=== PATIENT | female | born 1980 | race African-American/Black ===

== ENCOUNTER 2017-10-31 08:07 | Emergency (ER) | payer OTHER ==
[2017-10-31] MEDS ORDERED: METHOCARBAMOL 1,000 MG in NA CHLORIDE 0.9% 100 ML IV ONE (09:00)
[2017-10-31] MEDS ORDERED: KETOROLAC 30 MG/ML INJ ONE (09:08)
[2017-10-31] MEDS ORDERED: ACETAMINOPHEN 500 MG TAB ONE (10:37)
--- NOTE | 2017-10-31 10:48 | EDPHYS ---
Physician Documentation [facility] Name: Talat Mendieta Age: 37 yrs Sex: Female : 1980 Arrival Date: 10/31/2017 Time: 08:09 Bed 8 Private MD: ED Physician Garett Donovan HPI: 10/31 08:33 This 37 yrs old Black Female presents to ER via EMS with complaints of Back Pain. kdr 08:33 The patient presents with pain that is acute, and decreased range of motion, and kdr tenderness. The symptoms are located in the right subscapular area and right mid back. Onset: The symptoms/episode began/occurred suddenly, just prior to arrival. The pain does not radiate. Associated signs and symptoms: The patient has no apparent associated signs or symptoms. The problem was sustained The patient was reaching up into her closet when she had acute onset of pain in her right subscapular (Serratus Anterior \T\ Latissimus Dorsi) area . Modifying factors: The patient symptoms are alleviated by remaining still, the patient symptoms are aggravated by movement, Moving her right arm and chest wall causes discomfort. Severity of symptoms: At their worst the symptoms were severe, incapacitating, in the emergency department the symptoms have improved, mildly. The patient has not experienced similar symptoms in the past. The patient has not recently seen a physician. Historical: - Allergies: 08:14 Codeine; hb 08:14 PENICILLINS; hb 08:14 Sulfa (Sulfonamide Antibiotics); hb - Home Meds: 08:14 None [Active]; hb - PMHx: 08:14 Asthma; hb - PSHx: 08:14 Tubal ligation; hb - Immunization history:: Adult Immunizations up to date. - Social history:: Smoking status: Patient/guardian denies using tobacco. ROS: 08:33 Constitutional: Negative for fever, chills, and weight loss, Eyes: Negative for injury, kdr pain, redness, and discharge, Neck: Negative for injury, pain, and swelling, Cardiovascular: Negative for chest pain, palpitations, and edema, Respiratory: Negative for shortness of breath, cough, wheezing, and pleuritic chest pain, Abdomen/GI: Negative for abdominal pain, nausea, vomiting, diarrhea, and constipation, : Negative for injury, bleeding, discharge, and swelling, MS/Extremity: Negative for injury and deformity, Skin: Negative for injury, rash, and discoloration, Neuro: Negative for headache, weakness, numbness, tingling, and seizure activity. Psych: Negative for depression, anxiety, suicide ideation, homicidal ideation, and hallucinations, Allergy/Immunology: Negative for hives, rash, and allergies, Endocrine: Negative for neck swelling, polydipsia, polyuria, polyphagia, and marked weight changes, Hematologic/Lymphatic: Negative for swollen nodes, abnormal bleeding, and unusual bruising. 08:33 Back: Positive for decreased range of motion, pain at rest, pain with movement, of the right subscapular area and right mid back. Exam: 08:33 Constitutional: This is a well developed, well nourished patient who is awake, alert, kdr and in no acute distress. Head/Face: Normocephalic, atraumatic. Eyes: Pupils equal round and reactive to light, extra-ocular motions intact. Lids and lashes normal. Conjunctiva and sclera are non-icteric and not injected. Cornea within normal limits. Periorbital areas with no swelling, redness, or edema. Neck: Trachea midline, no thyromegaly or masses palpated, and no cervical lymphadenopathy. Supple, full range of motion without nuchal rigidity, or vertebral point tenderness. No Meningismus. Chest/axilla: Normal chest wall appearance and motion. Nontender with no deformity. No lesions are appreciated. Cardiovascular: Regular rate and rhythm with a normal S1 and S2. No gallops, murmurs, or rubs. Normal PMI, no JVD. No pulse deficits. Respiratory: Lungs have equal breath sounds bilaterally, clear to auscultation and percussion. No rales, rhonchi or wheezes noted. No increased work of breathing, no retractions or nasal flaring. Abdomen/GI: Soft, non-tender, with normal bowel sounds. No distension or tympany. No guarding or rebound. No evidence of tenderness throughout. Skin: Warm, dry with normal turgor. Normal color with no rashes, no lesions, and no evidence of cellulitis. MS/ Extremity: Pulses equal, no cyanosis. Neurovascular intact. Full, normal range of motion. Neuro: Awake and alert, GCS 15, oriented to person, place, time, and situation. Cranial nerves II-XII grossly intact. Motor strength 5/5 in all extremities. Sensory grossly intact. Cerebellar exam normal. Normal gait. Psych: Awake, alert, with orientation to person, place and time. Behavior, mood, and affect are within normal limits. 08:33 Back: pain, that is mild, that is moderate, of the right subscapular area and right mid back. Vital Signs: 08:09 BP 138 / 94; Pulse 82; Resp 16; Temp 97.9; Pulse Ox 98% on R/A; Pain 9/10; hb 10:02 BP 114 / 91; Pulse 81; Resp 16; Pulse Ox 100% on R/A; la1 11:09 BP 117 / 76; Pulse 81; Resp 16; Pulse Ox 100% on R/A; la1 MDM: 08:15 Patient medically screened. kdr 08:33 Data reviewed: vital signs, nurses notes. Counseling: I had a detailed discussion with kdr the patient and/or guardian regarding: the historical points, exam findings, and any diagnostic results supporting the discharge/admit diagnosis, the need for outpatient follow up. Administered Medications: 08:51 Drug: TORadol 30 mg Route: IVP; Site: right antecubital; hb 09:19 Follow up: Response: No adverse reaction; Pain is decreased hb 09:19 Drug: Robaxin 1 grams Route: IVPB; Infused Over: 1 hrs; Site: right antecubital; hb 11:04 Follow up: IV Status: Completed infusion la1 10:20 Drug: Tylenol 1000 mg Route: PO; la1 11:03 Follow up: Response: No adverse reaction; Pain is decreased la1 Disposition: 10/31/17 10:47 Discharged to Home. Impression: Muscle spasm of back, Low back pain. - Condition is Stable. - Discharge Instructions: Musculoskeletal Pain, Back Pain, Adult, [id number]. - Prescriptions for Ibuprofen 800 mg Oral Tablet - take 1 tablet by ORAL route every 8 hours As needed take with food; 15 tablet. Robaxin 500 mg Oral Tablet - take 2 tablet by ORAL route every 6 hours As needed; 40 tablet. Tramadol 50 mg Oral Tablet - take 1 tablet by ORAL route every 8 hours As needed as needed; 15 tablet. Medrol (Irving) 4 mg Oral Tablets, Dose Pack - take 1 tablet by ORAL route as directed - follow package instructions; 1 packet. - Medication Reconciliation Form, Thank You Letter form. - Follow up: Private Physician; When: 2 - 3 days; Reason: If symptoms return, Further diagnostic work-up, Recheck today's complaints, Continuance of care, Re-evaluation by your physician. - Problem is new. - Symptoms have improved. Signatures: Garett Donovan MD MD kdr Attema, Lee RN RN la1 Leonarda Tesfaye RN RN hb
--- NOTE | 2017-10-31 10:48 | ER ---
Nurse's Notes [facility] Name: Talat Mendieta Age: 37 yrs Sex: Female : 1980 Arrival Date: 10/31/2017 Time: 08:09 Bed 8 Private MD: Diagnosis: Muscle spasm of back;Low back pain Presentation: 10/31 08:09 Presenting complaint: EMS states: Sudden sharp pain 10/10 under right shoulder blade hb while reaching overhead in closet. Pain radiates to right shoulder and back is tender upon palpation. Transition of care: patient was not received from another setting of care. Onset of symptoms was October 31, 2017. Care prior to arrival: None. 08:09 Method Of Arrival: EMS: [facility] hb 08:09 Acuity: MARTÍN 4 hb Historical: - Allergies: 08:14 Codeine; hb 08:14 PENICILLINS; hb 08:14 Sulfa (Sulfonamide Antibiotics); hb - Home Meds: 08:14 None [Active]; hb - PMHx: 08:14 Asthma; hb - PSHx: 08:14 Tubal ligation; hb - Immunization history:: Adult Immunizations up to date. - Social history:: Smoking status: Patient/guardian denies using tobacco. Screenin:14 Abuse screen: Denies threats or abuse. Denies injuries from another. Nutritional hb screening: No deficits noted. Tuberculosis screening: No symptoms or risk factors identified. Fall Risk None identified. Assessment: 08:15 General: Appears in no apparent distress. Behavior is calm, cooperative. Pain: Pain hb currently is 10 out of 10 on a pain scale. Neuro: Level of Consciousness is awake, alert, obeys commands, Oriented to person, place, time, situation. Cardiovascular: Capillary refill < 3 seconds Patient's skin is warm and dry. Respiratory: Airway is patent Trachea midline Respiratory effort is even, unlabored, Respiratory pattern is regular, symmetrical, Breath sounds are clear bilaterally. GI: No signs and/or symptoms were reported involving the gastrointestinal system. : No signs and/or symptoms were reported regarding the genitourinary system. EENT: No signs and/or symptoms were reported regarding the EENT system. Derm: Skin is intact, is healthy with good turgor, Skin is pink, warm \T\ dry. Musculoskeletal: Reports pain in right mid back and right subscapular area. 09:00 Reassessment: Patient appears in no apparent distress at this time. Patient and/or hb family updated on plan of care and expected duration. Pain level reassessed. Patient is alert, oriented x 3, equal unlabored respirations, skin warm/dry/pink. 10:02 Reassessment: Patient appears in no apparent distress at this time. No changes from la1 previously documented assessment. Patient and/or family updated on plan of care and expected duration. Pain level reassessed. Patient is alert, oriented x 3, equal unlabored respirations, skin warm/dry/pink. 11:03 Reassessment: Patient appears in no apparent distress at this time. No changes from la1 previously documented assessment. Patient and/or family updated on plan of care and expected duration. Pain level reassessed. Patient is alert, oriented x 3, equal unlabored respirations, skin warm/dry/pink. 11:03 Reassessment: awaiting final consult with ERP to D/C patient. la1 Vital Signs: 08:09 BP 138 / 94; Pulse 82; Resp 16; Temp 97.9; Pulse Ox 98% on R/A; Pain 9/10; hb 10:02 BP 114 / 91; Pulse 81; Resp 16; Pulse Ox 100% on R/A; la1 11:09 BP 117 / 76; Pulse 81; Resp 16; Pulse Ox 100% on R/A; la1 ED Course: 08:09 Patient arrived in ED. hb 08:13 Triage completed. hb 08:14 Arm band placed on right wrist. hb 08:15 Garett Donovan MD is Attending Physician. kdr 08:15 Patient has correct armband on for positive identification. Bed in low position. Call hb light in reach. Side rails up X 1. 08:43 Leonarda Tesfaye, RN is Primary Nurse. hb 08:51 Inserted saline lock: 20 gauge in right antecubital area, using aseptic technique. hb 11:09 No provider procedures requiring assistance completed. IV discontinued, intact, la1 bleeding controlled, No redness/swelling at site. Pressure dressing applied. Administered Medications: 08:51 Drug: TORadol 30 mg Route: IVP; Site: right antecubital; hb 09:19 Follow up: Response: No adverse reaction; Pain is decreased hb 09:19 Drug: Robaxin 1 grams Route: IVPB; Infused Over: 1 hrs; Site: right antecubital; hb 11:04 Follow up: IV Status: Completed infusion la1 10:20 Drug: Tylenol 1000 mg Route: PO; la1 11:03 Follow up: Response: No adverse reaction; Pain is decreased la1 Outcome: 10:47 Discharge ordered by . kdr 11:09 Discharged to home via wheelchair, with family. la1 11:09 Condition: stable 11:09 Discharge instructions given to patient, Instructed on discharge instructions, follow up and referral plans. medication usage, Demonstrated understanding of instructions, follow-up care, medications, Prescriptions given X 4. 11:10 Patient left the ED. la1 Signatures: Garett Donovan MD MD kdr Syed Ozuna RN RN la1 Leonarda Tesfaye RN RN hb Corrections: (The following items were deleted from the chart) 08:20 08:09 Presenting complaint: EMS states: Sudden sharp pain 10/10 under right shoulder hb blade while reaching overhead in closet. hb
== END 2017-10-31 11:10 | disposition home or self-care (01) ==
LOC: ER 08:07
DX: M62.830 Muscle spasm of back (principal); Z88.0 Allergy status to penicillin; Z88.2 Allergy status to sulfonamides; Z88.5 Allergy status to narcotic agent
CPT/HCPCS: 96365; 96366; 96375; 99284; J2800